=== PATIENT | male | born 1970 | race Caucasian/White ===

== ENCOUNTER → 2021-09-18 11:20 | Outpatient (CLI) | payer OTHER, SELFPAY ==
--- NOTE | ~2021-09-18 | XR_ITS ---
XR lumbar spine 2-3V DATE: 09/18/2021 11:39 INDICATION: Low back pain TECHNIQUE: AP, lateral, coned lateral lumbosacral views COMPARISON: None FINDINGS: Mild dextroscoliosis of the lumbar spine. Thoracic spine and levoscoliosis. Normal alignmen t of the lumbar spine. No fracture or bone destruction or spondylolisthesis. The lumbar pedicles and included lower thoracic pedicles are intact. Mild degenerative disc disease at L4-5, moderate degenerative disc disease at L5-S1. The sacroiliac joints are intact. Bilateral hip osteoarthritis IMPRESSION: Mild and moderate degenerative disc disease at L4-5 and L5-S1, respectively Mild dextroscoliosis of the lumbar spine Bilateral hip osteoarthritis Reviewed, dictated and finalized at location B. IMPRESSION: Mild and moderate degenerative disc disease at L4-5 and L5-S1, resp ectively Mild dextroscoliosis of the lumbar spine Bilateral hip osteoarthritis
== END ==
PROVIDERS: PCP Physician Assistant Medical; Visit Provider Physician Assistant Medical
DX: M54.50 Low back pain, unspecified (principal); M51.36 Other intervertebral disc degeneration, lumbar region; M51.37 Other intervertebral disc degeneration, lumbosacral region; M41.86 Other forms of scoliosis, lumbar region; M16.0 Bilateral primary osteoarthritis of hip
CPT/HCPCS: 72100

== ENCOUNTER 2023-04-19 01:28 | Emergency (ER) | payer MEDICAID, SELFPAY ==
[2023-04-19] VITALS (14 sets, daily range): BP systolic 129–161; BP diastolic 79–96; PULSE 67–77; RESP 14–27; TEMP 36.4; O2SAT 87–100
--- NOTE | ~2023-04-19 | XR_ITS ---
EXAMINATION: XR chest 1V portable 04/19/2023 02:33 INDICATION: Hypertension. Headache. PROCEDURE: AP portable chest COMPARISON: No prior studies for comparison. FINDINGS: The lungs are clear. The cardiomediastinal silhouette is within normal limits. There are no pleural effusions. There is no pneumothorax suspected. IMPRESSION: 1: NO ACUTE CARDIOPULMONARY DISEASE. Reviewed, dictated and finalized at location A. [employer]
--- NOTE | 2023-04-19 02:05 | ECG_ITS ---
Measurements Intervals [place] Rate: 66 P: 13 MA: 159 QRS: 14 QRSD: 89 T: 38 QT: 356 QTc: 374 Interpretive Statements SINUS RHYTHM LEFT VENTRICULAR HYPERTROPHY AND ST-T CHANGE BASELINE WANDER- I, II, AVR, AVL, AVF, V4-V6 BORDERLINE ECG NO PREVIOUS ECG AVAILABLE FOR COMPARISON Electronically Signed On 04-19-2023 8:11:09 [employer] by Aiden Clarke D.O.
--- NOTE | 2023-04-19 02:09 | ED.GENADULT ---
HPI - General Adult General Chief complaint: Recheck/Abnormal Lab/Rx Stated complaint: HTN Time Seen by Provider: 04/19/23 01:58 History of Present Illness HPI narrative: patient is a 52-year-old gentleman who presents emergency department with chief complaint of hypertension. Patient reports the last days been having headaches reports that he checked his blood pressure has been running in the 180s. Patient reports no real significant chest pain did report he had a little uncomfortable feeling on the left side of his chest. Patient reports no diaphoresis and no shortness of breath. The patient denies altered mental status patient denies weakness in his arms or legs. Related Data Home Medications Medication Instructions Recorded Confirmed alprazolam 0.5 mg tablet mg 04/19/23 metoprolol succinate 50 mg mg PO 04/19/23 tablet,extended release 24 hr omeprazole 40 mg capsule,delayed mg 04/19/23 release rosuvastatin 10 mg tablet mg 04/19/23 tadalafil 20 mg tablet mg 04/19/23 Allergies Allergy/AdvReac Type Severity Reaction Status Date / Time No Known Allergies Allergy Unknown Verified 04/19/23 01:52 Review of Systems Review of Systems: A 10 system review of systems was completed on the patient and is negative except for what is stated in the HPI. Nursing and ancillary documentation was reviewed. Exam Narrative: GENERAL: Well-appearing, well-nourished, and in no acute distress. HEAD: Normocephalic, atraumatic. EYES: PERRLA and EOMI. ENT: Nares clear, no rhinorrhea or epistaxis. Mucous membranes moist. NECK: Supple. CHEST: Clear to auscultation. No respiratory distress. HEART: Regular rate and rhythm. No murmur heard. Normal peripheral pulses. ABDOMEN: Soft, nontender, nondistended, normal active bowel sounds. EXTREMITIES: Normal range of motion. No edema. SKIN: Warm, dry, no rash. NEURO: No focal deficits. Alert and oriented x3. PSYCH: Normal mood and affect. Course Vital Signs Vital signs: Vital Signs Temperature 36.4 C 04/19/23 01:28 Pulse Rate 72 04/19/23 01:28 Respiratory Rate 14 04/19/23 01:28 Blood Pressure 161/96 H 04/19/23 01:28 Pulse Oximetry 99 04/19/23 01:28 Oxygen Delivery Room Air 04/19/23 01:28 Temperature 36.4 C 04/19/23 01:28 Pulse Rate 72 04/19/23 01:28 Respiratory Rate 14 04/19/23 01:28 Blood Pressure 161/96 H 04/19/23 01:28 Pulse Oximetry 99 04/19/23 01:28 Oxygen Delivery Room Air 04/19/23 01:28 Medical Decision Making MDM Narrative Medical decision making narrative: Differential diagnosis includes hypertensive urgency, end-organ dysfunction, electrolyte abnormality, ACS, laboratory studies were obtained patient which showed negative troponin electrolytes are within normal limits CBC was within normal limits. Urinalysis showed no protein the patient has been observed in the emergency department blood pressure has come down to 129/81 patient is not having any focal neurological deficits no chest pain or shortness of breath at this time Vital Signs Vital Signs: Vital Signs Temperature 36.4 C 04/19/23 01:28 Pulse Rate 72 04/19/23 01:28 Respiratory Rate 14 04/19/23 01:28 Blood Pressure 161/96 H 04/19/23 01:28 Pulse Oximetry 99 04/19/23 01:28 Oxygen Delivery Room Air 04/19/23 01:28 Temperature 36.4 C 04/19/23 01:28 Pulse Rate 72 04/19/23 01:28 Respiratory Rate 14 04/19/23 01:28 Blood Pressure 161/96 H 04/19/23 01:28 Pulse Oximetry 99 04/19/23 01:28 Oxygen Delivery Room Air 04/19/23 01:28 Lab Data 04/19/23 02:20 04/19/23 02:20 Labs: Lab Results 04/19/23 Range/Units 02:20 WBC 7.9 (4.5-10.0) K/mm3 RBC 4.79 (4.6-6.20) M/mm3 Hgb 15.2 (14.0-18.0) g/dL Hct 44.7 (42.0-52.0) % MCV 93.3 (80-100) fl MCH 31.7 (26-34) pg MCHC 34.0 (32-36) g/dl RDW 12.5 (11.5-14.5) % Plt Count 193 (150-375) k/mm3 MPV
[2023-04-19 02:30] LABS: Basophils Percent Auto 0.3 % (0.2-1.2); Eosinophils Absolute Auto 0.2 K/mm3 (0-0.3); Eosinophils Percent Auto 2.5 % (0-4.4); Hematocrit 44.7 % (42.0-52.0); Hemoglobin 15.2 g/dL (14.0-18.0); Immature Granulocyte Absolute 0.04 K/mm3 (0.00-0.031); Immature Granulocyte Percent A 0.5 % (0-0.5); Lymphocytes Absolute Auto 2.06 K/mm3 (0.9-3.2); Lymphocytes Percent Auto 26.1 % (18.3-44.2); Mean Corpuscular Hemoglobin 31.7 pg (26-34); Mean Corpuscular Volume 93.3 fl (80-100); Mean Platelet Volume 8.9 fl (7.4-10.4); Monocytes Absolute Auto 0.7 K/mm3 (0.1-0.6); Monocytes Percent Auto 9.1 % (2.6-8.5); Neutrophils Absolute Auto 4.9 K/mm3 (1.3-6.7); Neutrophils Percent Auto 61.5 % (45.5-73.1); Platelet Count Result 193 k/mm3 (150-375); Red Blood Count 4.79 M/mm3 (4.6-6.20); Red Cell Distribution Width 12.5 % (11.5-14.5); White Blood Count 7.9 K/mm3 (4.5-10.0)
[2023-04-19 02:41] LABS: Appearance Urine Clear (Clear); Bilirubin Urine Negative (Negative); Blood Urine Negative (Negative); Color Urine Yellow (Yellow); Glucose Urine UA Negative (Negative); Ketones Urine Negative (Negative); Leukocyte Esterase Ur Negative LEU/UL (Negative); Nitrate Urine Negative (Negative); Protein Urine Negative (Negative); pH Urine 5.5 (5.0-9.0)
[2023-04-19 02:43] LABS: Alanine Aminotransferase 20 U/L (6-50); Albumin Level 4.1 g/dL (3.5-5.1); Alkaline Phosphatase 74 U/L (38-126); Anion Gap 8 mmol/L (8-16); Aspartate Amino Transferase 22 U/L (17-59); Bilirubin,Total 0.5 mg/dL (0.2-1.3); Blood Urea Nitrogen 17 mg/dL (9-20); Carbon Dioxide 23 mmol/L (22-30); Chloride 108 mmol/L (98-107); Estimated CRCL calculation 93 ml/min; Estimated Glomerular Filt Rate > 60; Glucose 133 mg/dL (65-110); Potassium 3.7 mmol/L (3.4-5.0); Sodium 139 mmol/L (137-145)
[2023-04-19 03:13] LABS: Troponin I < 0.012 ng/mL (0.000-0.034)
[2023-04-19 03:16] LABS: Specific Grav Ur 1.038 (1.001-1.035)
[2023-04-19 03:17] LABS: Add Urine Microscopic? NO
== END 2023-04-19 03:45 | disposition home or self-care (01) ==
PROVIDERS: Emergency Provider Emergency Medicine; PCP Physician Assistant Medical
DX: I10 Essential (primary) hypertension (principal); I51.7 Cardiomegaly
CPT/HCPCS: 36415; 71045; 80053; 81003; 84484; 85025; 93005; 99284